=== PATIENT | female | born 1940 | race Caucasian/White ===

== ENCOUNTER → 2017-10-17 12:16 | Day surgery (SDC) | payer OTHER, SELFPAY ==
[2017-10-17] MEDS: PROPARACAINE 0.5% OPHTH SOL 2 DROPS EYE-OP (14:22)
[2017-10-17 14:29] VITALS: BP 196/93; PULSE 62; RESP 16; TEMP 36.6; O2SAT 98; BMI 25.6
[2017-10-17] MEDS: CYCLOPENTOLATE 1% OPHTH 2.5 DROPS, PHENYLEPHRINE 2.5% OPHTH 2.5 DROPS, TROPICAMIDE 1% O... EYE-OP (14:29)
--- NOTE | 2017-10-17 14:44 | PM.PREOP ---
Pre-operative Note Interval Note Pre-op Check: History & Physical Reviewed
[2017-10-17] MEDS: PHENYLEPHRINE/LIDOCAINE 3ML VIAL (OR) EYE-OP (14:54)
[2017-10-17] MEDS: MOXIFLOXACIN OPHTH DROPS 3 ML BOTTLE 2 DROPS INJ (14:55)
[2017-10-17] MEDS: TRIAMCINOLONE 50 MG/5 ML VIAL INJ (14:55)
[2017-10-17] MEDS: CHONDROIDTIN/SOD HYALURONATE 1.05 ML SYRINGE INTRAOCULA (14:56)
[2017-10-17] MEDS: BALANCED SALT IRRIG SOLN NO.2 500 ML, EPINEPHrine 1 MG IRR (14:56)
[2017-10-17] MEDS: LIDOCAINE JELLY 2% 5 ML 1 APPLIC TOP (14:57)
[2017-10-17] MEDS: TETRACAINE 0.5% OPHTH DROPS 15 ML 2 DROPS EYE-RIGHT (14:58)
--- NOTE | 2017-10-17 15:04 | P.OP_ITS ---
Operative Date/Time/Diagnoses - Pre-op diagnosis: Cataract Right eye Post-op diagnosis: same Procedure & Clinicians Procedure: Cataract Surgery Same procedure as scheduled: Yes Surgeon: Melecio Sher Anesthesia Type: MAC +/- and Sedation Operative Notes Procedure in detail: Patient brought to the operating suite. Tetracaine drops placed in the right eye. Patient was prepped and draped in sterile manner. Wire lid speculum was placed in the eye. Betadine drops were placed on the eye. This was irrigated. Lidocaine jelly was placed on the eye. A paracentesis port was created with a side-port blade. 2 mL lidocaine phenylephrine was injected into the anterior chamber. The anterior chamber was deepened with viscoelastic. 2.6 mm keratome was used to create a temporal clear corneal incision. Cystotome and Utrata forceps were used to create continuous tear capsulorrhexis. Balanced salt solution was used to hydro dissect the nucleus. The phacoemulsification handpiece was inserted and the nucleus was removed using the stop and chop technique. The irrigation aspiration handpiece was inserted and the remaining cortex was removed. Anterior chamber was deepened with viscoelastic. An Hector ZCB00 intraocular lens with a power of 12.0 was injected into the capsular bag. Irrigation aspiration handpiece was inserted and the remaining viscoelastic was removed. Incision was hydrated with balanced salt solution and found to be leak free with pressure with Weck- Jayashree sponges. 0.1 mL Vigamox injected anterior chamber. 0.3 mL Kenalog 10 mg was injected subconjunctivally. Lid speculum was removed. The patient left the operating room in excellent condition. Complications: none Condition: stable Disposition: same day surgery
[2017-10-17 15:09] VITALS: BP 167/78; PULSE 54; RESP 15; TEMP 36.6; O2SAT 95
== END ==
PROVIDERS: Visit Provider Ophthalmology
DX: H25.11 Age-related nuclear cataract, right eye (principal); I10 Essential (primary) hypertension; I51.9 Heart disease, unspecified
CPT/HCPCS: J0171; J2250; J3010; J3301

== ENCOUNTER 2021-02-14 19:35 | Emergency (ER) | payer OTHER, SELFPAY ==
[2021-02-14] VITALS (32 sets, daily range): BP systolic 80–178; BP diastolic 50–108; PULSE 39–135; RESP 19–34; TEMP 36.3; O2SAT 91–100
--- NOTE | 2021-02-14 19:45 | DI.RAD.S_ITS ---
PROCEDURE: XR CHEST 1V INDICATIONS: chest pain TECHNIQUE: One view of the chest was acquired. COMPARISON: None. FINDINGS: Surgical changes and devices: None. Lungs and pleura: Mild diffuse mid and lower opacity bilaterally. No pleural effusions or pneumothorax. Mediastinum: Mediastinal contours appear normal. Heart size is normal. Bones and chest wall: No suspicious bony lesions. Overlying soft tissues appear unremarkable. IMPRESSION: Mild atypical pneumonia. Dictated by: Lizette Greenberg M.D. on 02/14/2021 at 20:23 Approved by: Lizette Greenberg M.D. on 02/14/2021 at 20:24
[2021-02-14] MEDS: METOPROLOL TARTRATE 5 MG/5 ML INJ IV ×2 (20:19→21:21)
--- NOTE | 2021-02-14 20:19 | ED.ARRPALP ---
HPI - Arrhythmia/Palpitations General Chief Complaint: Arrhythmia/Palpitations Stated Complaint: RAPID HEART RATE Time Seen by Provider: 02/14/21 19:49 Source: patient and family Mode of arrival: Wheelchair Limitations: no limitations History of Present Illness HPI narrative: Patient is a 80-year-old female with history of hypertrophic cardiomyopathy and hyperlipidemia presenting today with weakness and palpitations. She was feeling pretty weak yesterday more so than normal and started feeling some palpitations she thought as well. She had some increasing shortness of breath with exertion. Daughter has a home pulse oximeter and checked her heart rate and it was in the 130s. She says it is normally around 40. She does have a prior history of atrial fibrillation that was a number of years ago they say she got 3 different medications nothing seemed to work and she was then cardioverted. She is not on any anticoagulation. She denies any fever or chills. No orthopnea her lower extremity edema. Related Data Home Medications Medication Instructions Recorded Confirmed metoprolol succinate 100 mg 100 mg PO DAILY 10/17/17 10/24/17 tablet,extended release 24 hr Lyrica 100 mg PO DAILY 10/24/17 10/24/17 allopurinol 100 mg PO DAILY 10/24/17 10/24/17 disopyramide phosphate 200 mg PO BID 10/24/17 10/24/17 sumatriptan succinate 100 mg PO PRN PRN 10/24/17 10/24/17 Previous Rx's Medication Instructions Recorded furosemide 20 mg tablet (Lasix) 20 mg PO QAM #4 tab 02/15/21 Allergies Allergy/AdvReac Type Severity Reaction Status Date / Time No Known Drug Allergies Allergy Verified 02/14/21 19:47 Review of Systems Review of Systems Narrative: GENERAL: Denies chills, fatigue, malaise, fever, sweats, travel HEENT: Denies sinus pain, ear pain, sore throat, difficulty swallowing, neck pain RESPIRATORY: Denies dyspnea, cough, wheezing, hemoptysis, sputum. CARDIOVASCULAR: See HPI GASTROINTESTINAL: Denies nausea, vomiting, abdominal pain, diarrhea, constipation, melena. : Denies dysuria, frequency, incontinence, hematuria, urinary retention, flank pain. MUSCULOSKELETAL: Denies weakness, joint pain, or bony pain SKIN: No rash, no erythema, no pruritus NEUROLOGIC: Denies weakness, dizziness, headache, numbness, change in speech, confusion PSYCHIATRIC: No concerning psychosocial issues. 12 point review of systems is negative except for those stated above and HPI Patient History Medical History (Updated 02/15/21 @ 00:26 by Renetta Goldman DO) Hypertrophic obstructive cardiomyopathy Social History household members: spouse Smoking Status: Never smoker Smoking Status: Never smoker alcohol intake frequency: 0-2 drinks per day Substance Use Type: does not use Exam Initial Vital Signs Initial Vital Signs: Vital Signs Temperature 97.4 F L 02/14/21 19:35 Pulse Rate 120 H 02/14/21 19:35 Respiratory Rate 22 02/14/21 19:35 Blood Pressure 94/58 L 02/14/21 19:35 Pulse Oximetry 97 02/14/21 19:35 GENERAL: Alert pleasant 80-year-old female no acute distress HEENT: Head atraumatic,EOMI, pupils reactive, face symmetric, [moist] mucous membranes CARDIOVASCULAR: Irregularly irregular tachycardic RESPIRATORY: Breath sounds equal bilaterally, no wheezes rales or rhonchi. ABDOMEN: Soft, nontender. Normoactive bowel sounds all 4 quadrants. No guarding or rebound. EXTREMITIES: Normal range of motion, no clubbing or edema. Neurovascularly intact NEUROLOGICAL: Alert and oriented x4.Normal gait and speech. SKIN: Warm, dry, no laceration, no petechiae, no rashes or lesions. Procedures Cardioversion Consent Signed: Yes Indication: AFib with RVR Stability: Stable Joules used: 120 Cardiac rhythm post-cardioversion: Normal sinus rhythm Procedural Sedation Consent signed: Yes Time out performed: Yes ASA Class: I Mallampati Airway Classification: Class I Preparation: rugby union footballer applied, pulse oximeter, capnometry used, supplemental O2 applied, suction/airway equipment at bedside and IV secured IV Propofol dose (mg): 80 ED Sedation Level: Moderate (Concious) Patient Tolerated Procedure: Well Complications: hypoventilation Interventions: Airway repositioned and Assist by BVM Course Orders Ordered: ED Orders 02/14/21 22:27 EKG-12 Lead Stat 02/14/21 23:45 Basic Metabolic Panel Stat Discontinued Medications Furosemide (Furosemide 40 Mg/4 Ml Vial) 40 mg IV NOW ONE Stop: 02/14/21 21:57 Last Admin: 02/14/21 22:41 Dose: 40 mg Documented by: ATAYLOR Metoprolol Tartrate (Metoprolol Tartrate 5 Mg/5 Ml Inj) 5 mg IV NOW ONE Stop: 02/14/21 20:06 Last Admin: 02/14/21 20:19 Dose: 5 mg Documented by: ATAYLOR Metoprolol Tartrate (Metoprolol Tartrate 5 Mg/5 Ml Inj) 5 mg IV NOW ONE Stop: 02/14/21 21:01 Last Admin: 02/14/21 21:21 Dose: 5 mg Documented by: ATAYLOR Propofol (Propofol 200 Mg/20 Ml Vial) 80 mg 1 mg/kg (80 mg) IV NOW ONE Stop: 02/14/21 21:01 Last Admin: 02/14/21 22:08 Dose: 80 mg Documented by: JAYSON Vital Signs Vital signs: Vital Signs - 8 hr 02/14/21 22:16 02/14/21 22:17 02/14/21 22:20 Pulse Rate 41 L 40 L 39 L Respiratory Rate 30 H 22 28 H Blood Pressure 91/50 L 83/53 L 80/51 L Pulse Oximetry 100 100 100 02/14/21 22:23 02/14/21 22:26 02/14/21 22:30 Pulse Rate 42 L 45 L 45 L Respiratory Rate 27 H 23 26 H Blood Pressure 98/58 L 99/55 L Pulse Oximetry 99 99 91 02/14/21 22:35 02/14/21 22:40 02/14/21 22:45 Pulse Rate 45 L 48 L 52 L Respiratory Rate 24 31 H 21 Blood Pressure 136/94 H 141/103 H 153/97 H Pulse Oximetry 97 94 100 02/14/21 22:51 02/14/21 22:55 02/14/21 23:00 Pulse Rate 51 L 48 L 47 L Respiratory Rate 23 26 H 26 H Blood Pressure 171/93 H 154/88 H 154/87 H Pulse Oximetry 100 100 100 02/14/21 23:05 02/14/21 23:15 02/14/21 23:17 Pulse Rate 48 L 55 L 49 L Respiratory Rate 27 H 27 H 24 Blood Pressure 148/90 H 164/93 H Pulse Oximetry 99 99 98 02/14/21 23:25 02/14/21 23:30 02/14/21 23:35 Pulse Rate 52 L 48 L 47 L Respiratory Rate 22 26 H 24 Blood Pressure 136/97 H 150/98 H 161/96 H Pulse Oximetry 100 99 98 02/14/21 23:41 02/14/21 23:45 02/14/21 23:50 Pulse Rate 49 L 50 L 50 L Respiratory Rate 26 H 24 34 H Blood Pressure 141/81 H 163/97 H 178/107 H Pulse Oximetry 99 98 97 02/14/21 23:55 02/15/21 00:00 02/15/21 00:05 Pulse Rate 49 L 49 L 49 L Respiratory Rate 26 H 22 21 Blood Pressure 154/92 H 160/96 H 148/98 H Pulse Oximetry 98 98 98 02/15/21 00:10 02/15/21 00:30 Pulse Rate 49 L 49 L Respiratory Rate 26 H 23 Blood Pressure 167/97 H Pulse Oximetry 98 99 MDM - Arrhythmia/Palpitations Lab Data Result diagrams: 02/14/21 19:52 02/14/21 23:45 Labs: Lab Results 02/14/21 02/14/21 02/14/21 Range/Units 19:52 19:52 19:52 WBC 15.3 H (4.5-11.0) X10^3/uL RBC 4.54 (4.0-5.2) X10^6/uL Hgb 13.2 (12.0-16.0) g/dL Hct 41.3 (36-46) % MCV 91.0 (80-100) fL MCH 29.1 (26-34) PG MCHC 31.9 (30-36) % RDW 16.7 H (11.6-14.8) % Plt Count 159 (150-400) X10^3/uL Neut % (Auto) 73.5 (50-75) % Lymph % (Auto) 17.6 L (25-40) % Porter % (Auto) 6.9 (3-14) % Eos % (Auto) 1.2 L (2-4) % Baso % (Auto) 0.8 (0-2) % Neut # (Auto) 56170 H (0774-2600) /uL Lymph # (Auto) 2700 (4584-1947) /uL Porter # (Auto) 1100 H (0-900) /uL Eos # (Auto) 200 (0-450) /uL Baso # (Auto) 100 (0-100) /uL Sodium 129 L (137-145) mmol/L Potassium 5.6 H (3.4-5.1) mmol/L Chloride 97 L (98-107) mmol/L Carbon Dioxide 23 (22-32) mmol/L BUN 40 H (7-17) mg/dL Creatinine 1.39 H (0.52-1.04) mg/dL Estimated GFR 36.6 L (>60) mL/min BUN/Creatinine Ratio 28.8 H (6-22) Glucose 134 H (80-110) mg/dL Calcium 9.7 (8.4-10.2) mg/dL Magnesium 1.9 (1.6-2.3) mg/dL Total Bilirubin 1.3 (0.2-1.3) mg/dL AST 51 H (14-36) IU/L ALT 24 (<35) IU/L Alkaline Phosphatase 84 (38-126) U/L Total Creatine Kinase 60 (30-135) U/L CK-MB (CK-2) TNP CK-MB (CK-2) Rel Index TNP Troponin I 0.015 (0.01-0.034) ng/mL NT-Pro-B Natriuret Pep 27246 H (<450) pg/mL Total Protein 6.9 (6.3-8.2) g/dL Albumin 4.3 (3.5-5.0) g/dL Globulin 2.6 (1.7-4.1) g/dL Albumin/Globulin Ratio 1.7 (1.0-2.8) Lipase 31 (23-300) U/L SARS-CoV-2 (PCR) Negative (Negative) 02/14/21 02/14/21 Range/Units 19:52 23:45 WBC (4.5-11.0) X10^3/uL RBC (4.0-5.2) X10^6/uL Hgb (12.0-16.0) g/dL Hct (36-46) % MCV (80-100) fL MCH (26-34) PG MCHC (30-36) % RDW (11.6-14.8) % Plt Count (150-400) X10^3/uL Neut % (Auto) (50-75) % Lymph % (Auto) (25-40) % Porter % (Auto) (3-14) % Eos % (Auto) (2-4) % Baso % (Auto) (0-2) % Neut # (Auto) (0691-1560) /uL Lymph # (Auto) (6377-8373) /uL Porter # (Auto) (0-900) /uL Eos # (Auto) (0-450) /uL Baso # (Auto) (0-100) /uL Sodium 130 L (137-145) mmol/L Potassium 5.3 H (3.4-5.1) mmol/L Chloride 97 L (98-107) mmol/L Carbon Dioxide 23 (22-32) mmol/L BUN 39 H (7-17) mg/dL Creatinine 1.41 H (0.52-1.04) mg/dL Estimated GFR 36.0 L (>60) mL/min BUN/Creatinine Ratio 27.7 H (6-22) Glucose 127 H (80-110) mg/dL Calcium 9.4 (8.4-10.2) mg/dL Magnesium (1.6-2.3) mg/dL Total Bilirubin (0.2-1.3) mg/dL AST (14-36) IU/L ALT (<35) IU/L Alkaline Phosphatase (38-126) U/L Total Creatine Kinase (30-135) U/L CK-MB (CK-2) CK-MB (CK-2) Rel Index Troponin I (0.01-0.034) ng/mL NT-Pro-B Natriuret Pep (<450) pg/mL Total Protein (6.3-8.2) g/dL Albumin (3.5-5.0) g/dL Globulin (1.7-4.1) g/dL Albumin/Globulin Ratio (1.0-2.8) Lipase (23-300) U/L SARS-CoV-2 (PCR) Negative (Negative) Point of Care Testing Test Results Not applicable ECG Data Interpretation: PROCEDURE:? XR CHEST 1V ? INDICATIONS:? chest pain ? TECHNIQUE:? One view of the chest was acquired.? ? COMPARISON:? None. ? FINDINGS:? ? Surgical changes and devices:? None.? ? Lungs and pleura:? Mild diffuse mid and lower opacity bilaterally.? No pleural effusions or pneumothorax.? ? Mediastinum:? Mediastinal contours appear normal.? Heart size is normal.? ? Bones and chest wall:? No suspicious bony lesions.? Overlying soft tissues appear unremarkable.? ? IMPRESSION:? Mild atypical pneumonia. ? ? Dictated by: Lizette Greenberg M.D. on 02/14/2021 at 20:23 ? ? [facility] Narrative Medical decision making narrative: The patient is in AFib with RVR she started feeling weak and having symptoms yesterday she is within the 48 hour time limit. She is not on anticoagulation. She had very minimal response with Lopressor. She is found to have a BNP 84045, which is probably causing some of her shortness of breath. His discussed with both patient and daughter risks of cardioversion. Patient was successfully cardioverted is after 1 shock. She was given Lasix as well to help with fluid retention. Potassium initially was found to be 5.6 but improved with Lasix down to 5.3. Patient is feeling better after her cardioversion. At this time she can go home with Lasix. I recommend that she call her rejoiner tomorrow to schedule follow-up appointment Discharge Plan Departure Patient Disposition: Home Clinical Impression: Atrial fibrillation with rapid ventricular response Congestive heart failure Qualifiers: Heart failure type: diastolic Heart failure chronicity: acute Qualified Code(s): I50.31 - Acute diastolic (congestive) heart failure Instructions: DI for Heart Failure, DI for Atrial Fibrillation Activity Restrictions/Additional Instructions: *You have been diagnosed with atrial fibrillation and congestive heart failure *What to do: At this time your cardioverted for atrial fibrillation. You need to have your potassium recheck with slightly elevated here in the emergency department bed is decreasing nicely *Continue to take medications as directed Lasix 20 mg once daily for 4 days *Follow up with your primary care provider in 2-3 days Please follow-up with your rejoiner call 1st thing tomorrow morning *Return to ER if you should have increasing weakness, palpitations, shortness of breath, chest pain or any new, worsening or concerning symptoms Prescriptions: New furosemide [Lasix] 20 mg tablet 20 mg PO QAM Qty: 4 RF: 0 No Action metoprolol succinate 100 mg Tablet Extended Release 24 Hr 100 mg PO DAILY RF: 0 Lyrica 100 mg bottle 100 mg PO DAILY RF: 0 allopurinol 100 mg capsule 100 mg PO DAILY RF: 0 disopyramide phosphate 100 mg capsule 200 mg PO BID RF: 0 sumatriptan succinate 100 mg capsule 100 mg PO PRN PRN (Reason: Migraine Headache) RF: 0 Referrals: Naveen Thompson MD [Non-Staff] -
[2021-02-14 20:20] LABS: Add Manual Diff / Slide Review NO; Basophils Absolute Auto 100 /uL (0-100); Basophils Percent Auto 0.8 % (0-2); Eosinophils Absolute Auto 200 /uL (0-450); Eosinophils Percent Auto 1.2 % (2-4); Hematocrit 41.3 % (36-46); Hemoglobin 13.2 g/dL (12.0-16.0); Lymphocytes Absolute Auto 2700 /uL (1100-4500); Lymphocytes Percent Auto 17.6 % (25-40); Mean Corpuscular HGB Conc 31.9 % (30-36); Mean Corpuscular Hemoglobin 29.1 PG (26-34); Monocytes Absolute Auto 1100 /uL (0-900); Monocytes Percent Auto 6.9 % (3-14); Neutrophils Absolute Auto 11200 /uL (1500-7000); Neutrophils Percent Auto 73.5 % (50-75); Platelet Count 159 X10^3/uL (150-400); Red Blood Cell Count 4.54 X10^6/uL (4.0-5.2); Red Cell Distribution Width 16.7 % (11.6-14.8); White Blood Cell Count 15.3 X10^3/uL (4.5-11.0)
[2021-02-14 20:54] LABS: COVID19 -Nasal RAPID Negative (Negative)
[2021-02-14 20:58] LABS: Alanine Aminotransferase 24 IU/L (<35); Albumin 4.3 g/dL (3.5-5.0); Albumin Globulin Ratio 1.7 (1.0-2.8); Alkaline Phosphatase 84 U/L (38-126); Aspartate Aminotransferase 51 IU/L (14-36); BUN Creatinine Ratio 28.8 (6-22); Bilirubin Total 1.3 mg/dL (0.2-1.3); Blood Urea Nitrogen 40 mg/dL (7-17); Calcium 9.7 mg/dL (8.4-10.2); Carbon Dioxide 23 mmol/L (22-32); Chloride 97 mmol/L (98-107); Creatine Kinase 60 U/L (30-135); Estimated Glomerular Filt Rate 36.6 mL/min (>60); Globulin 2.6 g/dL (1.7-4.1); Glucose 134 mg/dL (80-110); HEMOLYSIS 53 (0-50); Potassium 5.6 mmol/L (3.4-5.1); Sodium 129 mmol/L (137-145); Total Protein 6.9 g/dL (6.3-8.2)
[2021-02-14 21:04] LABS: Lipase 31 U/L (23-300); Magnesium 1.9 mg/dL (1.6-2.3)
[2021-02-14 21:06] LABS: NT-proBNP (BNP-Adult 18+) 12700 pg/mL (<450)
[2021-02-14 21:11] LABS: Troponin I 0.015 ng/mL (0.01-0.034)
[2021-02-14 21:14] LABS: COVID19 - ADMIT (NP swab/PCR) Negative (Negative)
[2021-02-14] MEDS: propofoL 200 MG/20 ML VIAL 80 MG IV (22:08)
[2021-02-14] MEDS: FUROSEMIDE 40 MG/4 ML VIAL IV (22:41)
[2021-02-15] VITALS: BP 160/96; PULSE 49; RESP 22; O2SAT 98
[2021-02-15 00:05] VITALS: BP 148/98; PULSE 49; RESP 21; O2SAT 98
[2021-02-15 00:06] LABS: BUN Creatinine Ratio 27.7 (6-22); Blood Urea Nitrogen 39 mg/dL (7-17); Calcium 9.4 mg/dL (8.4-10.2); Carbon Dioxide 23 mmol/L (22-32); Chloride 97 mmol/L (98-107); Glucose 127 mg/dL (80-110); HEMOLYSIS < 15 (0-50); Potassium 5.3 mmol/L (3.4-5.1); Sodium 130 mmol/L (137-145)
[2021-02-15 00:10] VITALS: BP 167/97; PULSE 49; RESP 26; O2SAT 98
[2021-02-15 00:30] VITALS: PULSE 49; RESP 23; O2SAT 99
== END 2021-02-15 01:04 | disposition home or self-care (01) ==
PROVIDERS: Emergency Provider Emergency Medicine
DX: I48.20 Chronic atrial fibrillation, unspecified (principal); I50.31 Acute diastolic (congestive) heart failure; R07.9 Chest pain, unspecified; R06.02 Shortness of breath; Z20.822 Contact with and (suspected) exposure to COVID-19
CPT/HCPCS: 36415; 71045; 80048; 80053; 82550; 83690; 83735; 83880; 84484; 85025; 87635; 92960; 93005; 93010; 96374; 96375; 96376; 99152; 99153; 99285; 99291; 99292; C9803; J1940; J2704